=== PATIENT | male | born 1955 | race Caucasian/White ===

== ENCOUNTER 2016-11-26 06:28 | Observation (INO) | payer MEDICARE, OTHER ==
--- NOTE | ~2016-11-26 | DS ---
Discharge Summary [facility] [id number] [place]. [address] NAME: HAIDER ORDONEZ IV : 57 STATUS : DIS Nisha PAT#: [id number] AGE: 61 ADM/REG DATE : 11/26/16 MR#: [id number] REPORT SERV DATE: 11/27/16 DICTATED BY: ADRIANA ANSARI DATE: 11/26/16 REPORT STATUS : Draft TRANSCRIBED BY: MODL DATE: 11/26/16 ADMISSION DATE: 11/26/2016 DISCHARGE DATE: 11/26/2016 FINAL DIAGNOSES: 1. Viral gastroenteritis. 2. Hypotension and shock. 3. Dehydration. 4. Obesity. 5. History of hypertension. 6. Atherosclerotic cardiovascular disease. HOSPITAL COURSE: The patient came in with diarrhea and vomiting. He was dehydrated and had postural hypotension and postural symptoms. Blood pressure fell during the hospitalization. IV fluid was given. Supine and standing blood pressures improved during the day. Repeat BMP showed improvement in the creatinine with IV hydration. The patient was able to stand. He was tolerating oral liquids. He was able to be discharged after approximately 14 hours hospitalization time and treatment and will return back to see Dr. Angel in 7 to 14 days. He will be discharged on clopidogrel, vitamin B12, pyridoxine, gabapentin restarting on 11/28/2016, metoprolol starting with half a dose for two days and then 50 b.i.d., prednisone 10 mg p.o. daily, lisinopril restart on 12/01/2016, aspirin 81 mg daily restart on the 11/29/2016, atorvastatin on the 11/30/2016 of 80 b.i.d., nitroglycerin sublingually as needed, hydrocodone 7.5/325 one q.6 hours p.r.n. pain, Flexeril as needed for muscle spasm. Folic acid, restart on 11/28/2016 and loperamide can be taken in p.r.n. fashion. IVY/JACINDA Adriana Ansari M.D. / [id number] CC: Geoffrey Shelton Jr, MD Janak Naik, M.D.
--- NOTE | ~2016-11-26 | HP ---
History And Physical [address] [address] NAME: HAIDER ORDONEZ IV : 56 STATUS : ADM Nisha PAT#: [id number] AGE: 61 ADM/REG DATE : 11/26/16 MR#: [id number] REPORT SERV DATE: 11/26/16 DICTATED BY: ADRIANA ANSARI DATE: 11/26/16 REPORT STATUS : Draft TRANSCRIBED BY: MODL DATE: 11/26/16 DATE OF ADMISSION: 11/26/2016 EXAMINING PHYSICIAN: Adriana Ansari M.D. REASON FOR ADMISSION: Hypotension with viral gastroenteritis. HISTORY OF PRESENT ILLNESS: This is a 61-year-old disabled white male, who had sudden onset of nausea and vomiting at 2 a.m. he came to the emergency room, IV fluids given. His blood pressure came up slightly with that, but with observation, his blood pressure fell again to 80/60, Dr. Jaswinder Mesa called for plan for admission to at least observation to watch the blood pressure come up and allow the patient to eat some. He has been intensely nauseated and vomiting since 2 a.m. He has not been able to leave the toilet for over two hours. He has tried to stand, got wobbling, nearly fell, therefore the patient was admitted to observation for continued hydration converting to oral hydration and then stabilization for walking and discharged to home. PAST MEDICAL HISTORY: He had an MO in 2002, subsequently CABG in 2006. Dr. Codey Falcon follows him for cardiovascular problems. He is treated for hypotension by Dr. Angel. MEDICATIONS: He is on the following medication: Aspirin 81 mg p.o. daily, atorvastatin 80 mg p.o. daily, Plavix 75 mg p.o. daily, B12 of 500 mcg p.o. daily, Flexeril 10 mg b.i.d. p.r.n., folic acid 400 mcg p.o. daily, gabapentin 800 mg p.o. three times a day, hydrocodone 7.5/325 one p.o. q.6 hours p.r.n., lisinopril 10 mg p.o. daily, loperamide 2 mg p.o. p.r.n. diarrhea initially given per Dr. Gaitan for irritable bowel syndrome, Lopressor 50 mg p.o. b.i.d., nitroglycerin 0.4 sublingually p.r.n. chest pain, prednisone 10 mg p.o. daily, and pyridoxine 50 mg p.o. daily. ALLERGIES: WASP VENOM. SOCIAL HISTORY: 39 years. Two children alive and well. He is disabled because he fell off a deck, hit his back on a door handle, had a compression fracture of about T5. He also had surgery on his L5-S1 level by Dr. Cristiano Arenas. FAMILY HISTORY: He has two children who are alive and well. Brother and sisters are all because of heart disease and cancer. Mother at 91 years of age with gallbladder surgery and father of lung cancer from smoking excessively. REVIEW OF SYSTEMS: The patient does not smoke. He does not drink. He has no fever, chills, or night sweats, just the diarrhea and vomiting copious amounts. No chest pain, shortness of breath, swelling in the lower extremities, or hemoptysis. He did have bilious vomiting with a dark look to it according to his . He has had no hematuria, though his urine is becoming dark. He has had no melena. History And Physical [address] [address] NAME: HAIDER ORDONEZ IV : 56 STATUS : ADM Nisha PAT#: [id number] AGE: 61 ADM/REG DATE : 11/26/16 MR#: [id number] REPORT SERV DATE: 11/26/16 DICTATED BY: ADRIANA ANSARI DATE: 11/26/16 REPORT STATUS : Draft TRANSCRIBED BY: MODMatias DATE: 11/26/16 The remainder of the review of systems. PHYSICAL EXAMINATION: VITAL SIGNS: Blood pressure now at 108/70 with a heart rate of 100, respiratory rate 18, afebrile. HEENT: EOMI. Sclerae clear. Conjunctivae pink. NECK: No bruits without any JVD. CHEST: Clear to A and P. HEART: Regular S1, S2 without murmur, gallop, or click. ABDOMEN: Soft, nontender. Bowel sounds positive. Obese. EXTREMITIES: Have trace edema bilaterally. His distal pulses are intact with dorsalis pedis and posterior tibial. NEUROLOGIC: He withdraws to plantar stimulation. Wire Setter is symmetric bilaterally. Coordination intact. No tremor. He is symmetric and equal neurologically bilaterally now. RECTAL: Deferred. SKIN: Without rash, ecchymosis, or bruising. Adenopathy, none are palpable. LABORATORY DATA: CT scan of the abdomen showed no bowel obstruction, no mass lesion, no adenopathy or inflammatory process. Urinalysis shows a specific gravity of 1.021, negative dip, few hyaline casts. Comprehensive metabolic panel showed a creatinine 1.31, BUN of 20, sodium 139, potassium 4.2. Liver tests were normal. Troponin less than 0.04. Lipase was 104. The white count was 16,800, hemoglobin 17, hematocrit 52, platelets 203. ASSESSMENT: 1. Dehydration. 2. Viral gastroenteritis. 3. Nausea and vomiting secondary to viral gastroenteritis. 4. Atherosclerotic cardiovascular disease. 5. Obesity. 6. History of hypertension, now with hypotension. PLAN: We are going to hold his medicines, admit to observation. Continue the IV fluid, resuscitation, and plan to discharge this afternoon once he is stable and able to stand without blood pressure drop. DB/JACINDA Adriana Ansari M.D. / [id number] CC: History And Physical [address] [address] NAME: HAIDER ORDONEZ IV : 57 STATUS : ADM Nisha PAT#: [id number] AGE: 61 ADM/REG DATE : 11/26/16 MR#: [id number] REPORT SERV DATE: 11/26/16 DICTATED BY: ADRIANA ANSARI DATE: 11/26/16 REPORT STATUS : Draft TRANSCRIBED BY: JACINDA DATE: 11/26/16 Geoffrey Shelton Jr, MD Janak Naik, M.D.
[2016-11-26 06:01] LABS: BASOPHILS 0.2 %; BASOPHILS ABSOLUTE 0.03 10/3/uL (0.0-0.16); EOSINOPHILS 0.5 %; EOSINOPHILS ABSOLUTE 0.09 10/3/uL (0.0-0.53); IMMATURE GRANULOCYTES 0.5 %; IMMATURE GRANULOCYTES ABSOLUTE 0.08 10/3/uL (0.0-0.11); LYMPHOCYTES 5.5 %; LYMPHOCYTES ABSOLUTE 0.92 10/3/uL (0.67-4.30); MEAN CORPUSCULAR HEMOGLOB 31.7 pg (26.0-34.0); MEAN PLATELET VOLUME 10.8 fL (9.2-13.0); MONOCYTES 10.8 %; MONOCYTES ABSOLUTE 1.81 10/3/uL (0.21-1.20); NEUTROPHILS 82.5 %; NEUTROPHILS ABSOLUTE 13.84 10/3/uL (2.02-8.40); PLATELET COUNT 203 10/3/uL (150-400); RBC DISTRIBUTION WIDTH 13.1 % (12.0-16.0); RED CELL COUNT 5.65 10/6/uL (4.7-6.1)
[2016-11-26 06:05] LABS: ER CBC TAT 0 Hrs 13 Mins; HEMATOCRIT 52.7 % (40.0-51.0); HEMOGLOBIN 17.9 g/dL (13.6-17.8); MANUAL DIFF NO %; MEAN CORPUSCULAR VOLUME 93.3 fL (80-100); WHITE BLOOD CELLS 16.8 10/3/uL (4.5-10.5)
[2016-11-26 06:20] LABS: A/G RATIO 1.1 (0.7-1.9); ALBUMIN 4.5 G/DL (3.5-5.0); ALKALINE PHOSPHATASE 106 U/L (45-117); BUN (BLOOD UREA NITROGEN) 20 MG/DL (6-23); CALCIUM, SERUM 9.3 MG/DL (8.5-10.4); CHLORIDE, SERUM 104 MMOL/L (96-112); CO2 (CARBON DIOXIDE) 24 MMOL/L (24-34); CREATININE 1.31 MG/DL (0.70-1.30); GFR AFRICAN AMERICAN 68 ML/MIN (>=60); GFR NON AFRICAN AMERICAN 59 ML/MIN (>=60); GLOBULIN 4.1 G/DL (2.5-4.1); GLUCOSE, SERUM 115 MG/DL (60-99); POTASSIUM, SERUM 4.2 MMOL/L (3.5-5.3); SGOT(AST) 13 U/L (5-40); SGPT(ALT) 35 U/L (5-65); SODIUM, SERUM 139 MMOL/L (135-148); TOTAL BILIRUBIN 1.2 MG/DL (0-1.2); TOTAL PROTEIN 8.6 G/DL (6.0-8.5)
[~2016-11-26 06:28] MED LIST: ASAB PO; FLEXERIL5 MG PO; FOLIC ACID; HYDROCODONE APAP PO; IMOD PO; LIPITOR40 PO; LOP50 PO; MEDROLPAK4 PO; NEUR400 PO; NEUR800 PO; NITROQUICK0.4 MG SL; NORCO1 TA2 PO; PLAVIX PO; PRIN5 PO; VIT B-SIX 50 MG50 MG PO; VITAMIN B-121000 MC1 PO
[2016-11-26 06:46] LABS: TROPONIN I <0.02 NG/ML (<0.05)
[2016-11-26 06:48] LABS: ASCORBIC ACID (UR NOT ORDER) NEG (NEG); BILIRUBIN, URINE NEGATIVE (NEG); ER URINALYSIS TAT 0 Hrs 10 Mins; KETONE, URINE NEGATIVE (NEG); LEUKOCYTE ESTERASE(NOT OR NEG (NEG); NITRITE (URINE) NEG (NEG); WBC (NOT ORDERED) (RFLEX) 1 (0-5)
[2016-11-26] MEDS ORDERED: PLAVIX PO (11:03)
[2016-11-26] MEDS ORDERED: PRIN10 PO (11:04)
[2016-11-26] MEDS ORDERED: HALF81 PO (11:05)
[2016-11-26] MEDS ORDERED: LOP50 PO (11:05)
[2016-11-26] MEDS ORDERED: NEUR800 PO (11:06)
[2016-11-26] MEDS ORDERED: NITROQUICK0.4 MG SL (11:06)
[2016-11-26] MEDS ORDERED: LIPITOR80 MG PO (11:06)
[2016-11-26] MEDS ORDERED: P10 PO (11:07)
[2016-11-26] MEDS ORDERED: NORCO1 TA2 PO (11:07)
[2016-11-26] MEDS ORDERED: FLEX PO (11:07)
[2016-11-26] MEDS ORDERED: B12250T PO (11:08)
[2016-11-26] MEDS ORDERED: FOLIC ACID400 MC1 PO (11:08)
[2016-11-26] MEDS ORDERED: VIT B-SIX 50 MG50 MG PO (11:08)
[2016-11-26] MEDS ORDERED: IMOD PO (11:09)
[2016-11-26 15:32] LABS: CHLORIDE, SERUM 109 MMOL/L (96-112); CO2 (CARBON DIOXIDE) 21 MMOL/L (24-34); CREATININE 1.03 MG/DL (0.70-1.30); GFR AFRICAN AMERICAN 91 ML/MIN (>=60); GFR NON AFRICAN AMERICAN 79 ML/MIN (>=60); GLUCOSE, SERUM 107 MG/DL (60-99); POTASSIUM, SERUM 4.1 MMOL/L (3.5-5.3); SODIUM, SERUM 142 MMOL/L (135-148)
[2016-11-26 15:36] LABS: BUN (BLOOD UREA NITROGEN) 15 MG/DL (6-23); CALCIUM, SERUM 7.9 MG/DL (8.5-10.4)
== END 2016-11-26 20:34 | disposition home or self-care (01) ==
LOC: ER 06:28 → CDU1 12:10
PROVIDERS: Internal Medicine; Nurse Practitioner
DX: A08.4 Viral intestinal infection, unspecified (principal); E86.0 Dehydration; E66.9 Obesity, unspecified; I95.9 Hypotension, unspecified; I25.2 Old myocardial infarction; I25.10 Atherosclerotic heart disease of native coronary artery without angina pectoris; Z91.038 Other insect allergy status; Z95.1 Presence of aortocoronary bypass graft; Z79.02 Long term (current) use of antithrombotics/antiplatelets; Z79.82 Long term (current) use of aspirin; Z79.899 Other long term (current) drug therapy; Z88.8 Allergy status to other drugs, medicaments and biological substances
CPT/HCPCS: 74176; 80048; 80053; 81001; 83690; 84484; 85025; 93005; 96372; 96374; 96375; 96376; 99285; A9270-GY; G0378; J2405; J2550